=== PATIENT | male | born 1970 | race Caucasian/White ===

== ENCOUNTER → 2017-01-27 | Outpatient (CLI) | payer OTHER ==
[~2017-01-27] MED LIST: ACID REDUCER 1150 MG PO; ASPIRIN325 M2 PO; ATORVASTATIN CA80 M1 PO; BACTRIM DS 8001 TA1 PO; CLOPIDOGREL75 MG PO; HYDROCODONE BIT1 T11 PO; KEFLEX500 MG PO; LEVOTHYROXIN0.025 MG PO; LISINOPRIL10 M1 PO; LOPRESSOR25 MG PO; MOTRIN800 MG PO; NAPROSYN500 MG PO; NKHM PO; OMEPRAZOLE MAGN20 MG PO; PERCOCET 325 MG1 TA7 PO; ZOFRAN ODT4 MG SL; ZYLOPRIM100 MG PO; ZYRTEC10 MG PO
[2017-01-27 11:13] LABS: URIC ACID 3.3 mg/dL (3.5-7.2)
[2017-01-27 11:18] LABS: THYROID STIM HORMONE (HS) 3.17 uIU/ml (0.358-4.75)
== END | disposition home or self-care (01) ==
LOC: LAB 10:19
PROVIDERS: Nurse Practitioner Family
DX: I10 Essential (primary) hypertension (principal); E03.9 Hypothyroidism, unspecified; M10.9 Gout, unspecified

== ENCOUNTER 2017-05-30 21:48 | Emergency (ER) | payer OTHER ==
[~2017-05-30] VITALS: Ht 177.8 cm; Wt 104.3 kg
== END 2017-05-30 22:30 | disposition home or self-care (01) ==
LOC: ED 21:48
DX: S81.012A Laceration without foreign body, left knee, initial encounter (principal); F17.200 Nicotine dependence, unspecified, uncomplicated; Z91.030 Bee allergy status; W18.30XA Fall on same level, unspecified, initial encounter; Y93.89 Activity, other specified; Y92.9 Unspecified place or not applicable; Y99.9 Unspecified external cause status

== ENCOUNTER → 2017-07-16 | Outpatient (CLI) | payer OTHER | END | disposition home or self-care (01) | LOC: LAB 09:52 | DX: E03.9 Hypothyroidism, unspecified (principal) ==

== ENCOUNTER → 2017-08-18 | Outpatient (CLI) | payer OTHER ==
[~2017-08-18] MED LIST changes: +ANAPROX DS550 MG PO
[2017-08-18 10:59] LABS: BASO # 0.1 10*3/uL (0.0-0.1); BASO % 0.9 % (0.0-1.0); EOS # 0.3 10*3/uL (0.0-0.4); EOS % 2.8 % (1.0-4.0); HEMATOCRIT 45.9 % (42.0-52.0); HEMOGLOBIN 15.6 g/dl (14.0-18.0); LYMPH # 2.1 10*3/uL (1.3-4.4); LYMPH % 21.2 % (27.0-41.0); MEAN CELL VOLUME 92.5 fl (80.0-94.0); MEAN CORPUSCULAR HGB 31.5 pg (27.0-31.0); MEAN PLATELET VOLUME 8.8 fl (9.6-12.3); MONO # 0.9 10*3/uL (0.1-1.0); MONO % 8.7 % (3.0-9.0); NEUT # 6.4 10*3/uL (2.3-7.9); NEUT % 66.1 % (47.0-73.0); PLATELET COUNT AUTOMATED 323 10*3/uL (130-400); RED BLOOD COUNT 4.96 10*6/uL (4.50-5.90); RED CELL DISTRI WIDTH 12.4 % (0-14.5); WHITE BLOOD COUNT 9.7 10*3/uL (4.8-10.8)
[2017-08-18 11:35] LABS: ALBUMIN 3.4 gm/dl (3.1-4.5); ALKALINE PHOSPHATASE 96 U/L (45-117); BUN 8 mg/dl (7-24); CHLORIDE 105 mmol/L (98-107); CHOLESTEROL 156 mg/dL (<200); HDL CHOLESTEROL 62 mg/dl (40-60); LDL CHOLESTEROL 72 mg/dL (9-159); POTASSIUM 4.3 mmol/L (3.5-5.1); SGOT/AST 20 IU/L (3-35); SGPT/ALT 49 U/L (12-78); SODIUM 139 mmol/L (136-145); TOTAL PROTEIN 7.1 gm/dL (6.4-8.2); TRIGLYCERIDES 110 mg/dl (<150); VLDL CHOLESTEROL 22 mg/dL (6-40)
== END | disposition home or self-care (01) ==
LOC: LAB 10:09
PROVIDERS: Nurse Practitioner Family
DX: I10 Essential (primary) hypertension (principal); E03.9 Hypothyroidism, unspecified

== ENCOUNTER 2017-08-20 20:31 | Emergency (ER) | payer OTHER ==
[~2017-08-20] VITALS: Ht 175.2 cm; Wt 99.8 kg
[~2017-08-20 20:31] MED LIST changes: -ANAPROX DS550 MG PO
[2017-08-20 21:28] LABS: BASO # 0.1 10*3/uL (0.0-0.1); BASO % 0.9 % (0.0-1.0); EOS # 0.3 10*3/uL (0.0-0.4); EOS % 2.6 % (1.0-4.0); HEMATOCRIT 44.3 % (42.0-52.0); HEMOGLOBIN 15.2 g/dl (14.0-18.0); LYMPH # 2.4 10*3/uL (1.3-4.4); LYMPH % 23.1 % (27.0-41.0); MEAN CELL VOLUME 91.9 fl (80.0-94.0); MEAN CORPUSCULAR HGB 31.5 pg (27.0-31.0); MEAN CORPUSCULAR HGB CONC 34.3 g/dl (33.0-37.0); MEAN PLATELET VOLUME 8.6 fl (9.6-12.3); MONO # 0.8 10*3/uL (0.1-1.0); MONO % 7.7 % (3.0-9.0); NEUT # 6.8 10*3/uL (2.3-7.9); NEUT % 65.3 % (47.0-73.0); PLATELET COUNT AUTOMATED 305 10*3/uL (130-400); RED BLOOD COUNT 4.82 10*6/uL (4.50-5.90); RED CELL DISTRI WIDTH 12.3 % (0-14.5); WHITE BLOOD COUNT 10.4 10*3/uL (4.8-10.8)
[2017-08-20 21:43] LABS: ALBUMIN 3.8 gm/dl (3.1-4.5); ALKALINE PHOSPHATASE 89 U/L (45-117); BUN 10 mg/dl (7-24); CHLORIDE 102 mmol/L (98-107); CREATININE 1.08 mg/dL (0.70-1.30); LIPASE 193 U/L (73-393); POTASSIUM 3.5 mmol/L (3.5-5.1); SGOT/AST 24 IU/L (3-35); SGPT/ALT 45 U/L (12-78); SODIUM 135 mmol/L (136-145); TOTAL PROTEIN 7.4 gm/dL (6.4-8.2)
[2017-08-20 21:56] LABS: BILIRUBIN NEGATIVE (NEGATIVE); BLOOD NEGATIVE (NEGATIVE); CLARITY CLEAR (CLEAR); COLOR YELLOW (YELLOW); GLUCOSE NEGATIVE (NEGATIVE); KETONE NEGATIVE (NEGATIVE); LEUKO ESTERASE NEGATIVE (NEGATIVE); NITRITE NEGATIVE (NEGATIVE); SPECIFIC GRAVITY <= 1.005 (1.005-1.030); UROBILINOGEN 0.2 E.U./dl (0.2-1.0)
[2017-08-20 22:05] LABS: BACTERIA TRACE; EPITHELIAL CELLS 0-2; RBC 0-2 rbc/hpf (0-2); WBC 0-2 wbc/hpf (0-5)
[2017-08-20] MEDS ORDERED: ANAPROX DS550 MG PO (23:34)
== END 2017-08-20 23:36 | disposition home or self-care (01) ==
LOC: ED 20:31
PROVIDERS: Physician Assistant
DX: R10.30 Lower abdominal pain, unspecified (principal); F17.200 Nicotine dependence, unspecified, uncomplicated; Z91.030 Bee allergy status; Z79.899 Other long term (current) drug therapy

== ENCOUNTER 2017-09-23 18:19 | Emergency (ER) | payer OTHER ==
[~2017-09-23] VITALS: Ht 175.2 cm; Wt 103.9 kg
[~2017-09-23 18:19] MED LIST changes: +ANAPROX DS550 MG PO
[2017-09-23] MEDS ORDERED: MEDROL DOSEPAK4 MG PO (19:05)
[2017-09-23] MEDS ORDERED: CYCLOBENZAPRINE10 MG PO (19:05)
== END 2017-09-23 19:09 | disposition home or self-care (01) ==
LOC: ED 18:19
DX: S39.011A Strain of muscle, fascia and tendon of abdomen, initial encounter (principal); F17.200 Nicotine dependence, unspecified, uncomplicated; Z91.030 Bee allergy status; Z79.899 Other long term (current) drug therapy; X58.XXXA Exposure to other specified factors, initial encounter; Y99.8 Other external cause status; Y92.89 Other specified places as the place of occurrence of the external cause; Y93.89 Activity, other specified

== ENCOUNTER 2017-11-05 18:53 | Emergency (ER) | payer OTHER ==
[~2017-11-05] VITALS: Ht 175.2 cm; Wt 102.1 kg
[~2017-11-05 18:53] MED LIST changes: +CYCLOBENZAPRINE10 MG PO; +MEDROL DOSEPAK4 MG PO
[2017-11-05] MEDS ORDERED: ASPIRIN CHEWABL81 MG PO (19:13)
[2017-11-05] MEDS ORDERED: PROAIR HFA8.5 GM INH (20:16)
[2017-11-05] MEDS ORDERED: PREDNISONE20 M1 PO (20:16)
[2017-11-05] MEDS ORDERED: ZITHROMAX250 MG PO (20:16)
== END 2017-11-05 20:24 | disposition home or self-care (01) ==
LOC: ED 18:53
DX: J20.9 Acute bronchitis, unspecified (principal); K21.9 Gastro-esophageal reflux disease without esophagitis; M10.9 Gout, unspecified; E03.9 Hypothyroidism, unspecified; I10 Essential (primary) hypertension; F10.10 Alcohol abuse, uncomplicated; Z91.030 Bee allergy status; Z79.82 Long term (current) use of aspirin; Z79.899 Other long term (current) drug therapy

== ENCOUNTER → 2017-11-25 | Outpatient (CLI) | payer OTHER ==
[~2017-11-25] MED LIST changes: +ASPIRIN CHEWABL81 MG PO; +PREDNISONE20 M1 PO; +PROAIR HFA8.5 GM INH; +ZITHROMAX250 MG PO
[2017-11-25 09:59] LABS: BASO # 0.1 10*3/uL (0.0-0.1); BASO % 1.2 % (0.0-1.0); EOS # 0.2 10*3/uL (0.0-0.4); EOS % 2.6 % (1.0-4.0); HEMATOCRIT 46.2 % (42.0-52.0); HEMOGLOBIN 15.6 g/dl (14.0-18.0); LYMPH # 2.2 10*3/uL (1.3-4.4); LYMPH % 26.3 % (27.0-41.0); MEAN CELL VOLUME 92.6 fl (80.0-94.0); MEAN CORPUSCULAR HGB 31.3 pg (27.0-31.0); MEAN CORPUSCULAR HGB CONC 33.8 g/dl (33.0-37.0); MONO # 0.8 10*3/uL (0.1-1.0); MONO % 9.2 % (3.0-9.0); NEUT # 5.1 10*3/uL (2.3-7.9); NEUT % 60.3 % (47.0-73.0); PLATELET COUNT AUTOMATED 343 10*3/uL (130-400); RED BLOOD COUNT 4.99 10*6/uL (4.50-5.90); RED CELL DISTRI WIDTH 12.2 % (0-14.5); WHITE BLOOD COUNT 8.5 10*3/uL (4.8-10.8)
[2017-11-25 10:35] LABS: ALBUMIN 3.3 gm/dl (3.1-4.5); ALKALINE PHOSPHATASE 98 U/L (45-117); BUN 8 mg/dl (7-24); CHLORIDE 106 mmol/L (98-107); CHOLESTEROL 160 mg/dL (<200); CREATININE 1.04 mg/dL (0.70-1.30); HDL CHOLESTEROL 52 mg/dl (40-60); LDL CHOLESTEROL 73 mg/dL (9-159); POTASSIUM 4.1 mmol/L (3.5-5.1); SGOT/AST 19 IU/L (3-35); SGPT/ALT 38 U/L (12-78); SODIUM 141 mmol/L (136-145); TOTAL PROTEIN 6.9 gm/dL (6.4-8.2); TRIGLYCERIDES 175 mg/dl (<150); VLDL CHOLESTEROL 35 mg/dL (6-40)
== END ==
LOC: LAB 09:43
PROVIDERS: Nurse Practitioner Family
DX: I10 Essential (primary) hypertension (principal); E05.90 Thyrotoxicosis, unspecified without thyrotoxic crisis or storm; K76.9 Liver disease, unspecified

== ENCOUNTER → 2018-03-03 | Outpatient (CLI) | payer OTHER ==
[2018-03-03 10:36] LABS: BASO # 0.1 10*3/uL (0.0-0.1); BASO % 1.3 % (0.0-1.0); EOS # 0.2 10*3/uL (0.0-0.4); EOS % 2.1 % (1.0-4.0); HEMATOCRIT 49.1 % (42.0-52.0); HEMOGLOBIN 16.2 g/dl (14.0-18.0); LYMPH # 2.3 10*3/uL (1.3-4.4); LYMPH % 24.8 % (27.0-41.0); MEAN CELL VOLUME 92.8 fl (80.0-94.0); MEAN CORPUSCULAR HGB 30.6 pg (27.0-31.0); MEAN PLATELET VOLUME 9.5 fl (9.6-12.3); MONO % 10.1 % (3.0-9.0); NEUT # 5.8 10*3/uL (2.3-7.9); NEUT % 61.3 % (47.0-73.0); PLATELET COUNT AUTOMATED 342 10*3/uL (130-400); RED BLOOD COUNT 5.29 10*6/uL (4.50-5.90); RED CELL DISTRI WIDTH 12.5 % (0-14.5); WHITE BLOOD COUNT 9.4 10*3/uL (4.8-10.8)
[2018-03-03 11:09] LABS: ALBUMIN 3.6 gm/dl (3.1-4.5); BUN 11 mg/dl (7-24); CHLORIDE 103 mmol/L (98-107); CHOLESTEROL 163 mg/dL (<200); CREATININE 1.07 mg/dL (0.70-1.30); POTASSIUM 4.1 mmol/L (3.5-5.1); SGOT/AST 18 IU/L (3-35); SGPT/ALT 41 U/L (12-78); SODIUM 138 mmol/L (136-145)
[2018-03-03 11:11] LABS: ALKALINE PHOSPHATASE 108 U/L (45-117); HDL CHOLESTEROL 58 mg/dl (40-60); LDL CHOLESTEROL 80 mg/dL (9-159); TOTAL PROTEIN 7.2 gm/dL (6.4-8.2); TRIGLYCERIDES 125 mg/dl (<150); VLDL CHOLESTEROL 25 mg/dL (6-40)
== END | disposition home or self-care (01) ==
LOC: LAB 09:42
PROVIDERS: Nurse Practitioner Family
DX: I10 Essential (primary) hypertension (principal); K76.9 Liver disease, unspecified

== ENCOUNTER → 2018-09-08 | Outpatient (CLI) | payer OTHER ==
[2018-09-09 08:13] LABS: ALPHA-1-ANTITRYPSIN, SERUM 147 mg/dL (90-200)
== END | disposition home or self-care (01) ==
LOC: LAB 08:07
PROVIDERS: Internal Medicine Critical Care Medicine
DX: J44.9 Chronic obstructive pulmonary disease, unspecified (principal)

== ENCOUNTER 2018-11-11 17:06 | Emergency (ER) | payer OTHER ==
[~2018-11-11] VITALS: Ht 177.8 cm; Wt 99.8 kg
[2018-11-11] MEDS ORDERED: PREDNISONE50 MG PO (17:31)
[2018-11-11] MEDS ORDERED: ZITHROMAX250 MG PO (17:31)
== END 2018-11-11 17:45 | disposition home or self-care (01) ==
LOC: ED 17:06
DX: J20.9 Acute bronchitis, unspecified (principal); J44.9 Chronic obstructive pulmonary disease, unspecified; I10 Essential (primary) hypertension; K21.9 Gastro-esophageal reflux disease without esophagitis; E03.9 Hypothyroidism, unspecified; I25.2 Old myocardial infarction; F17.200 Nicotine dependence, unspecified, uncomplicated; Z91.030 Bee allergy status; Z79.899 Other long term (current) drug therapy; Z79.82 Long term (current) use of aspirin

== ENCOUNTER → 2019-01-24 | Outpatient (CLI) | payer OTHER ==
[~2019-01-24] MED LIST changes: +PREDNISONE50 MG PO
[2019-01-24 09:16] LABS: BASO # 0.1 10*3/uL (0.0-0.1); BASO % 1.1 % (0.0-1.0); EOS # 0.2 10*3/uL (0.0-0.4); EOS % 1.9 % (1.0-4.0); HEMATOCRIT 47.6 % (42.0-52.0); HEMOGLOBIN 15.7 g/dl (14.0-18.0); LYMPH % 18.7 % (27.0-41.0); MEAN CELL VOLUME 92.4 fl (80.0-94.0); MEAN CORPUSCULAR HGB 30.5 pg (27.0-31.0); MEAN PLATELET VOLUME 8.7 fl (9.6-12.3); MONO # 0.8 10*3/uL (0.1-1.0); MONO % 7.5 % (3.0-9.0); NEUT # 7.4 10*3/uL (2.3-7.9); NEUT % 70.5 % (47.0-73.0); PLATELET COUNT AUTOMATED 359 10*3/uL (130-400); RED BLOOD COUNT 5.15 10*6/uL (4.50-5.90); RED CELL DISTRI WIDTH 12.1 % (0-14.5); WHITE BLOOD COUNT 10.5 10*3/uL (4.8-10.8)
[2019-01-24 09:43] LABS: ALBUMIN 3.6 gm/dl (3.1-4.5); ALKALINE PHOSPHATASE 109 U/L (45-117); BUN 6 mg/dl (7-24); CHLORIDE 104 mmol/L (98-107); CHOLESTEROL 135 mg/dL (<200); HDL CHOLESTEROL 64 mg/dl (40-60); LDL CHOLESTEROL 61 mg/dL (9-159); POTASSIUM 4.4 mmol/L (3.5-5.1); SGOT/AST 18 IU/L (3-35); SODIUM 138 mmol/L (136-145); TOTAL PROTEIN 7.3 gm/dL (6.4-8.2); TRIGLYCERIDES 51 mg/dl (<150); URIC ACID 2.7 mg/dL (3.5-7.2); VLDL CHOLESTEROL 10 mg/dL (6-40)
[2019-01-24 09:45] LABS: SGPT/ALT 30 U/L (12-78)
== END | disposition home or self-care (01) ==
LOC: LAB 08:50
PROVIDERS: Nurse Practitioner Family
DX: E03.9 Hypothyroidism, unspecified (principal); I25.2 Old myocardial infarction; E78.2 Mixed hyperlipidemia; I10 Essential (primary) hypertension; M10.9 Gout, unspecified; J44.9 Chronic obstructive pulmonary disease, unspecified; R10.13 Epigastric pain; F17.210 Nicotine dependence, cigarettes, uncomplicated; E66.9 Obesity, unspecified

== ENCOUNTER 2019-06-23 19:21 | Emergency (ER) | payer SELFPAY ==
[~2019-06-23] VITALS: Ht 175.2 cm; Wt 89.8 kg
[2019-06-23 19:57] LABS: BASO # 0.1 10*3/uL (0.0-0.1); BASO % 1.1 % (0.0-1.0); EOS # 0.3 10*3/uL (0.0-0.4); EOS % 2.7 % (1.0-4.0); HEMOGLOBIN 16.1 g/dl (14.0-18.0); LYMPH % 29.8 % (27.0-41.0); MEAN CELL VOLUME 90.7 fl (80.0-94.0); MEAN CORPUSCULAR HGB 31.1 pg (27.0-31.0); MEAN CORPUSCULAR HGB CONC 34.3 g/dl (33.0-37.0); MEAN PLATELET VOLUME 8.4 fl (9.6-12.3); MONO # 0.8 10*3/uL (0.1-1.0); MONO % 8.2 % (3.0-9.0); NEUT # 5.9 10*3/uL (2.3-7.9); NEUT % 57.9 % (47.0-73.0); PLATELET COUNT AUTOMATED 345 10*3/uL (130-400); RED BLOOD COUNT 5.18 10*6/uL (4.50-5.90); RED CELL DISTRI WIDTH 12.2 % (0-14.5); WHITE BLOOD COUNT 10.1 10*3/uL (4.8-10.8)
[2019-06-23 20:12] LABS: ALBUMIN 3.5 gm/dl (3.1-4.5); ALKALINE PHOSPHATASE 118 U/L (45-117); BUN 8 mg/dl (7-24); CHLORIDE 101 mmol/L (98-107); CREATININE 0.86 mg/dL (0.70-1.30); LIPASE 97 U/L (73-393); POTASSIUM 2.9 mmol/L (3.5-5.1); SGOT/AST 15 IU/L (3-35); SGPT/ALT 24 U/L (12-78); SODIUM 136 mmol/L (136-145); TOTAL PROTEIN 7.2 gm/dL (6.4-8.2)
[2019-06-24] MEDS ORDERED: K-TAB20 MEQ PO (01:06)
== END 2019-06-24 01:22 | disposition home or self-care (01) ==
LOC: ED 19:21
PROVIDERS: Physician Assistant
DX: K42.9 Umbilical hernia without obstruction or gangrene (principal); E87.6 Hypokalemia; F17.200 Nicotine dependence, unspecified, uncomplicated; Z91.030 Bee allergy status; Z79.899 Other long term (current) drug therapy; Z79.82 Long term (current) use of aspirin

== ENCOUNTER 2019-11-24 11:01 | Emergency (ER) | payer SELFPAY ==
[~2019-11-24] VITALS: Ht 170.1 cm; Wt 95.3 kg
[~2019-11-24 11:01] MED LIST changes: +K-TAB20 MEQ PO
[2019-11-24 11:47] LABS: BASO # 0.1 10*3/uL (0.0-0.1); BASO % 1.4 % (0.0-1.0); EOS # 0.2 10*3/uL (0.0-0.4); EOS % 2.3 % (1.0-4.0); HEMATOCRIT 48.2 % (42.0-52.0); HEMOGLOBIN 16.1 g/dl (14.0-18.0); LYMPH % 24.6 % (27.0-41.0); MEAN CELL VOLUME 94.1 fl (80.0-94.0); MEAN CORPUSCULAR HGB 31.4 pg (27.0-31.0); MEAN CORPUSCULAR HGB CONC 33.4 g/dl (33.0-37.0); MEAN PLATELET VOLUME 8.9 fl (9.6-12.3); MONO # 0.6 10*3/uL (0.1-1.0); MONO % 7.2 % (3.0-9.0); NEUT # 5.1 10*3/uL (2.3-7.9); NEUT % 64.2 % (47.0-73.0); PLATELET COUNT AUTOMATED 355 10*3/uL (130-400); RED BLOOD COUNT 5.12 10*6/uL (4.50-5.90); RED CELL DISTRI WIDTH 11.9 % (0-14.5); WHITE BLOOD COUNT 7.9 10*3/uL (4.8-10.8)
[2019-11-24 11:58] LABS: ACT PARTIAL THROMBO TIME 26.8 SECONDS (20.0-32.1); INTERNATIONAL NORM RATIO 0.9 (2.0-3.5)
[2019-11-24 12:03] LABS: ALBUMIN 3.6 gm/dl (3.1-4.5); ALKALINE PHOSPHATASE 104 U/L (45-117); BUN 8 mg/dl (7-24); CHLORIDE 107 mmol/L (98-107); CREATININE 1.04 mg/dL (0.70-1.30); POTASSIUM 3.9 mmol/L (3.5-5.1); SGOT/AST 14 IU/L (3-35); SGPT/ALT 31 U/L (12-78); SODIUM 141 mmol/L (136-145)
[2019-11-24 12:05] LABS: TROPONIN I < 0.015 ng/ml (<0.045)
[2019-11-24] MEDS ORDERED: PROVENTIL HFA6.7 GM INH (12:51)
[2019-11-24] MEDS ORDERED: PREDNISONE20 M1 PO (12:51)
[2019-11-24] MEDS ORDERED: TESSALON PERLE100 M1 PO (12:51)
== END 2019-11-24 12:55 | disposition home or self-care (01) ==
LOC: ED 11:01
PROVIDERS: Emergency Medicine
DX: J40 Bronchitis, not specified as acute or chronic (principal); E03.9 Hypothyroidism, unspecified; M10.9 Gout, unspecified; I10 Essential (primary) hypertension; F17.200 Nicotine dependence, unspecified, uncomplicated; Z79.899 Other long term (current) drug therapy; Z91.038 Other insect allergy status; Z79.82 Long term (current) use of aspirin

== ENCOUNTER 2020-01-18 09:46 | Emergency (ER) | payer SELFPAY ==
[~2020-01-18] VITALS: Ht 175.2 cm; Wt 102.1 kg
[~2020-01-18 09:46] MED LIST changes: +PROVENTIL HFA6.7 GM INH; +TESSALON PERLE100 M1 PO
[2020-01-18 10:16] LABS: BASO # 0.1 10*3/uL (0.0-0.1); BASO % 1.3 % (0.0-1.0); EOS # 0.1 10*3/uL (0.0-0.4); EOS % 1.7 % (1.0-4.0); HEMATOCRIT 47.6 % (42.0-52.0); HEMOGLOBIN 15.9 g/dl (14.0-18.0); LYMPH # 1.8 10*3/uL (1.3-4.4); MEAN CELL VOLUME 93.9 fl (80.0-94.0); MEAN CORPUSCULAR HGB 31.4 pg (27.0-31.0); MEAN CORPUSCULAR HGB CONC 33.4 g/dl (33.0-37.0); MEAN PLATELET VOLUME 8.7 fl (9.6-12.3); MONO # 0.7 10*3/uL (0.1-1.0); MONO % 9.1 % (3.0-9.0); NEUT # 4.8 10*3/uL (2.3-7.9); NEUT % 63.6 % (47.0-73.0); PLATELET COUNT AUTOMATED 350 10*3/uL (130-400); RED BLOOD COUNT 5.07 10*6/uL (4.50-5.90); WHITE BLOOD COUNT 7.6 10*3/uL (4.8-10.8)
[2020-01-18 10:33] LABS: ALBUMIN 3.5 gm/dl (3.1-4.5); ALKALINE PHOSPHATASE 106 U/L (45-117); BUN 7 mg/dl (7-24); CHLORIDE 107 mmol/L (98-107); CREATININE 1.11 mg/dL (0.70-1.30); POTASSIUM 4.1 mmol/L (3.5-5.1); SGOT/AST 14 IU/L (3-35); SGPT/ALT 28 U/L (12-78); SODIUM 141 mmol/L (136-145); TOTAL PROTEIN 6.8 gm/dL (6.4-8.2)
[2020-01-18 10:39] LABS: TROPONIN I < 0.015 ng/ml (<0.045)
[2020-01-18] MEDS ORDERED: VIBRAMYCIN100 MG PO (13:54)
== END 2020-01-18 13:57 | disposition home or self-care (01) ==
LOC: ED 09:46
PROVIDERS: Internal Medicine
DX: J40 Bronchitis, not specified as acute or chronic (principal); R07.9 Chest pain, unspecified; E03.9 Hypothyroidism, unspecified; K21.9 Gastro-esophageal reflux disease without esophagitis; I25.2 Old myocardial infarction; I10 Essential (primary) hypertension; F17.200 Nicotine dependence, unspecified, uncomplicated; Z91.030 Bee allergy status; Z79.899 Other long term (current) drug therapy; Z79.82 Long term (current) use of aspirin

== ENCOUNTER 2020-03-22 23:13 | Emergency (ER) | payer MEDICAID ==
[~2020-03-22] VITALS: Ht 177.8 cm; Wt 99.8 kg
[~2020-03-22 23:13] MED LIST changes: +VIBRAMYCIN100 MG PO
[2020-03-23] MEDS ORDERED: PENICILLIN VK500 MG PO (00:24)
== END 2020-03-23 01:18 | disposition home or self-care (01) ==
LOC: ED 23:13
DX: K04.7 Periapical abscess without sinus (principal); K21.9 Gastro-esophageal reflux disease without esophagitis; M10.9 Gout, unspecified; I25.2 Old myocardial infarction; E03.9 Hypothyroidism, unspecified; I10 Essential (primary) hypertension; F17.200 Nicotine dependence, unspecified, uncomplicated; Z91.030 Bee allergy status; Z79.899 Other long term (current) drug therapy; Z79.82 Long term (current) use of aspirin

== ENCOUNTER 2020-12-04 23:37 | Emergency (ER) | payer OTHER ==
[~2020-12-04 23:37] MED LIST changes: +PENICILLIN VK500 MG PO
[2020-12-05] MEDS ORDERED: PROCTOSOL-HC28.35 GM T ×2 (00:25)
== END 2020-12-05 00:33 | disposition home or self-care (01) ==
LOC: ED 23:37
DX: K64.5 Perianal venous thrombosis (principal); I10 Essential (primary) hypertension; E03.9 Hypothyroidism, unspecified; Z98.890 Other specified postprocedural states; Z91.030 Bee allergy status; Z79.2 Long term (current) use of antibiotics; Z79.899 Other long term (current) drug therapy; Z79.82 Long term (current) use of aspirin

== ENCOUNTER 2020-12-22 00:09 | Inpatient (IN) | payer OTHER ==
[~2020-12-22] VITALS: Ht 165.1 cm; Wt 86.7 kg
[2020-12-22] VITALS (11 sets, daily range): BP systolic 84–153; BP diastolic 64–107
[~2020-12-22 00:09] MED LIST changes: +PROCTOSOL-HC28.35 GM T
[2020-12-22 00:47] LABS: HEMATOCRIT 45.8 % (42.0-52.0); MEAN CORPUSCULAR HGB 32.4 pg (27.0-31.0); MEAN CORPUSCULAR HGB CONC 34.1 g/dl (33.0-37.0); MEAN PLATELET VOLUME 8.8 fl (9.6-12.3); PLATELET COUNT AUTOMATED 343 10*3/uL (130-400); RED BLOOD COUNT 4.82 10*6/uL (4.50-5.90); RED CELL DISTRI WIDTH 11.9 % (0-14.5); WHITE BLOOD COUNT 12.7 10*3/uL (4.8-10.8)
[2020-12-22 01:01] LABS: BUN 8 mg/dl (7-24)
[2020-12-22 01:03] LABS: CHLORIDE 106 mmol/L (98-107); SODIUM 138 mmol/L (136-145)
[2020-12-22 01:05] LABS: BASOPHILS 1 % (0-1); PLATELET SUFFICIENCY NORMAL (NORMAL); TOTAL CELLS COUNTED 100 #CELLS
[2020-12-22] MEDS ORDERED: FAMOTIDINE20 M1 PO (02:36)
[2020-12-22] MEDS ORDERED: LEVOTHYROXINE200 MC2 PO (02:37)
[2020-12-22] MEDS ORDERED: CETIRIZINE HYDR10 MG PO (02:38)
[2020-12-22] MEDS ORDERED: ATORVASTATIN CA80 M1 PO (02:38)
[2020-12-22] MEDS ORDERED: DILTIAZEM HCL120 M2 PO (02:39)
[2020-12-22 05:14] LABS: ALBUMIN 2.7 gm/dl (3.1-4.5); BUN 8 mg/dl (7-24); CHLORIDE 110 mmol/L (98-107); CREATININE 0.78 mg/dL (0.70-1.30); POTASSIUM 4.3 mmol/L (3.5-5.1); SGOT/AST 10 IU/L (3-35); SGPT/ALT 21 U/L (12-78); SODIUM 140 mmol/L (136-145); TOTAL PROTEIN 6.3 gm/dL (6.4-8.2)
[2020-12-22 05:24] LABS: ALKALINE PHOSPHATASE 83 U/L (45-117)
[2020-12-22 06:22] LABS: BASO # 0.1 10*3/uL (0.0-0.1); BASO % 0.7 % (0.0-1.0); EOS # 0.3 10*3/uL (0.0-0.4); EOS % 2.2 % (1.0-4.0); HEMATOCRIT 43.9 % (42.0-52.0); LYMPH % 17.6 % (27.0-41.0); MEAN CELL VOLUME 96.1 fl (80.0-94.0); MEAN CORPUSCULAR HGB 32.2 pg (27.0-31.0); MEAN CORPUSCULAR HGB CONC 33.5 g/dl (33.0-37.0); MEAN PLATELET VOLUME 9.6 fl (9.6-12.3); MONO # 1.4 10*3/uL (0.1-1.0); MONO % 12.1 % (3.0-9.0); NEUT # 7.5 10*3/uL (2.3-7.9); PLATELET COUNT AUTOMATED 363 10*3/uL (130-400); RED BLOOD COUNT 4.57 10*6/uL (4.50-5.90); WHITE BLOOD COUNT 11.2 10*3/uL (4.8-10.8)
[2020-12-23] VITALS: BP 130/91
[2020-12-23 06:53] LABS: BASO # 0.1 10*3/uL (0.0-0.1); BASO % 0.9 % (0.0-1.0); EOS # 0.3 10*3/uL (0.0-0.4); EOS % 3.8 % (1.0-4.0); HEMATOCRIT 43.3 % (42.0-52.0); LYMPH # 1.3 10*3/uL (1.3-4.4); LYMPH % 15.7 % (27.0-41.0); MEAN CELL VOLUME 96.9 fl (80.0-94.0); MEAN CORPUSCULAR HGB 32.2 pg (27.0-31.0); MEAN CORPUSCULAR HGB CONC 33.3 g/dl (33.0-37.0); MONO % 11.6 % (3.0-9.0); NEUT # 5.8 10*3/uL (2.3-7.9); NEUT % 67.8 % (47.0-73.0); PLATELET COUNT AUTOMATED 331 10*3/uL (130-400); RED BLOOD COUNT 4.47 10*6/uL (4.50-5.90); RED CELL DISTRI WIDTH 11.9 % (0-14.5); WHITE BLOOD COUNT 8.5 10*3/uL (4.8-10.8)
[2020-12-23 07:02] LABS: BUN 6 mg/dl (7-24); CHLORIDE 106 mmol/L (98-107); CREATININE 0.85 mg/dL (0.70-1.30); SODIUM 138 mmol/L (136-145)
[2020-12-23 08:00] VITALS: BP 134/82
[2020-12-23] MEDS ORDERED: AUGMENTIN 875875 MG PO (11:39)
== END 2020-12-23 11:58 | disposition home or self-care (01) | DRG 853 ==
LOC: ED 00:09 → EDHOLD 02:08 → 5E 14:35
PROVIDERS: Family Medicine; Internal Medicine; Surgery; ADMIT Family Medicine; ATTEND Family Medicine
PROC: 0D9P0ZZ Drainage of Rectum, Open Approach (ICD-10-PCS; principal; 2020-12-22)
DX: A41.9 Sepsis, unspecified organism (principal); E43 Unspecified severe protein-calorie malnutrition; K61.1 Rectal abscess; D75.89 Other specified diseases of blood and blood-forming organs; I25.10 Atherosclerotic heart disease of native coronary artery without angina pectoris; J44.9 Chronic obstructive pulmonary disease, unspecified; M10.9 Gout, unspecified; I10 Essential (primary) hypertension; K21.9 Gastro-esophageal reflux disease without esophagitis; E03.9 Hypothyroidism, unspecified; K62.89 Other specified diseases of anus and rectum; E83.51 Hypocalcemia; F10.10 Alcohol abuse, uncomplicated; K57.90 Diverticulosis of intestine, part unspecified, without perforation or abscess without bleeding; E66.3 Overweight; F17.210 Nicotine dependence, cigarettes, uncomplicated; E83.41 Hypermagnesemia; Z91.09 Other allergy status, other than to drugs and biological substances; Z82.49 Family history of ischemic heart disease and other diseases of the circulatory system; I25.2 Old myocardial infarction; Z68.31 Body mass index [BMI] 31.0-31.9, adult

== ENCOUNTER 2021-07-08 22:15 | Emergency (ER) | payer OTHER ==
[~2021-07-08] VITALS: Ht 167.6 cm; Wt 97.1 kg
[~2021-07-08 22:15] MED LIST changes: +AUGMENTIN 875875 MG PO; +CETIRIZINE HYDR10 MG PO; +DILTIAZEM HCL120 M2 PO; +FAMOTIDINE20 M1 PO; +LEVOTHYROXINE200 MC2 PO
[2021-07-08 22:43] LABS: BASO # 0.1 10*3/uL (0.0-0.1); BASO % 1.3 % (0.0-1.0); EOS # 0.3 10*3/uL (0.0-0.4); EOS % 3.1 % (1.0-4.0); HEMATOCRIT 49.3 % (42.0-52.0); LYMPH # 3.8 10*3/uL (1.3-4.4); LYMPH % 36.1 % (27.0-41.0); MEAN CELL VOLUME 91.6 fl (80.0-94.0); MEAN CORPUSCULAR HGB 31.4 pg (27.0-31.0); MEAN CORPUSCULAR HGB CONC 34.3 g/dl (33.0-37.0); MEAN PLATELET VOLUME 8.4 fl (9.6-12.3); MONO % 9.2 % (3.0-9.0); NEUT # 5.2 10*3/uL (2.3-7.9); NEUT % 49.6 % (47.0-73.0); PLATELET COUNT AUTOMATED 358 10*3/uL (130-400); RED BLOOD COUNT 5.38 10*6/uL (4.50-5.90); RED CELL DISTRI WIDTH 12.2 % (0-14.5); WHITE BLOOD COUNT 10.5 10*3/uL (4.8-10.8)
[2021-07-08 23:07] LABS: ALBUMIN 3.3 gm/dl (3.1-4.5); ALKALINE PHOSPHATASE 109 U/L (45-117); BUN 4 mg/dl (7-24); CHLORIDE 102 mmol/L (98-107); CREATININE 0.61 mg/dL (0.70-1.30); POTASSIUM 3.3 mmol/L (3.5-5.1); SGOT/AST 13 IU/L (3-35); SGPT/ALT 37 U/L (12-78); SODIUM 133 mmol/L (136-145); TOTAL PROTEIN 7.3 gm/dL (6.4-8.2)
== END 2021-07-09 01:47 | disposition home or self-care (01) ==
LOC: ED 22:15
PROVIDERS: Internal Medicine
DX: F10.129 Alcohol abuse with intoxication, unspecified (principal); Z20.822 Contact with and (suspected) exposure to COVID-19; E87.6 Hypokalemia; F17.200 Nicotine dependence, unspecified, uncomplicated; Z90.89 Acquired absence of other organs; Z79.899 Other long term (current) drug therapy; Z79.82 Long term (current) use of aspirin; Z91.030 Bee allergy status; Y90.9 Presence of alcohol in blood, level not specified

== ENCOUNTER 2021-08-13 11:51 | Emergency (ER) | payer OTHER ==
[~2021-08-13] VITALS: Ht 175.2 cm; Wt 88.5 kg
[2021-08-13] MEDS ORDERED: AUGMENTIN 875875 MG PO (16:28)
[2021-08-13] MEDS ORDERED: IBUPROFEN600 MG PO (16:28)
== END 2021-08-13 15:45 | disposition home or self-care (01) ==
LOC: ED 11:51
DX: K08.89 Other specified disorders of teeth and supporting structures (principal); R22.0 Localized swelling, mass and lump, head; F17.200 Nicotine dependence, unspecified, uncomplicated; Z91.030 Bee allergy status; Z79.2 Long term (current) use of antibiotics; Z79.899 Other long term (current) drug therapy; Z79.82 Long term (current) use of aspirin; Z98.890 Other specified postprocedural states

== ENCOUNTER 2023-06-11 11:13 | Emergency (ER) | payer OTHER ==
[~2023-06-11] VITALS: Wt 81.6 kg
[~2023-06-11 11:13] MED LIST changes: +IBUPROFEN600 MG PO
[2023-06-11] MEDS ORDERED: IBUPROFEN600 MG PO (12:17)
[2023-06-11] MEDS ORDERED: TOBRAMYCIN5 ML OD (12:17)
== END 2023-06-11 12:41 | disposition home or self-care (01) ==
LOC: ED 11:13
DX: T15.91XA Foreign body on external eye, part unspecified, right eye, initial encounter (principal); I10 Essential (primary) hypertension; M10.9 Gout, unspecified; E03.9 Hypothyroidism, unspecified; Z91.030 Bee allergy status; Z98.890 Other specified postprocedural states; F17.200 Nicotine dependence, unspecified, uncomplicated; F10.10 Alcohol abuse, uncomplicated

== ENCOUNTER 2023-08-27 11:43 | Emergency (ER) | payer OTHER ==
[~2023-08-27] VITALS: Ht 172.7 cm; Wt 81.6 kg
[~2023-08-27 11:43] MED LIST changes: +TOBRAMYCIN5 ML OD
== END 2023-08-27 12:14 | disposition home or self-care (01) ==
LOC: ED 11:43
DX: T63.441A Toxic effect of venom of bees, accidental (unintentional), initial encounter (principal); I10 Essential (primary) hypertension; M10.9 Gout, unspecified; E03.9 Hypothyroidism, unspecified; Z98.890 Other specified postprocedural states; F10.10 Alcohol abuse, uncomplicated; F17.200 Nicotine dependence, unspecified, uncomplicated; Y92.89 Other specified places as the place of occurrence of the external cause

== ENCOUNTER 2023-10-09 13:29 | Emergency (ER) | payer OTHER ==
[~2023-10-09] VITALS: Ht 175.2 cm; Wt 81.2 kg
[2023-10-09 14:11] LABS: BASO # 0.1 10*3/uL (0.0-0.1); BASO % 1.2 % (0.0-1.0); EOS # 0.3 10*3/uL (0.0-0.4); HEMATOCRIT 49.8 % (42.0-52.0); LYMPH # 2.3 10*3/uL (1.3-4.4); LYMPH % 22.3 % (27.0-41.0); MEAN CELL VOLUME 93.3 fl (80.0-94.0); MEAN CORPUSCULAR HGB 31.8 pg (27.0-31.0); MEAN CORPUSCULAR HGB CONC 34.1 g/dl (33.0-37.0); MEAN PLATELET VOLUME 8.2 fl (9.6-12.3); MONO # 0.9 10*3/uL (0.1-1.0); MONO % 8.9 % (3.0-9.0); NEUT # 6.6 10*3/uL (2.3-7.9); NEUT % 64.2 % (47.0-73.0); PLATELET COUNT AUTOMATED 385 10*3/uL (130-400); RED BLOOD COUNT 5.34 10*6/uL (4.50-5.90); RED CELL DISTRI WIDTH 11.9 % (0-14.5); WHITE BLOOD COUNT 10.3 10*3/uL (4.8-10.8)
[2023-10-09 14:33] LABS: ALKALINE PHOSPHATASE 88 U/L (46-116); BUN 7 mg/dl (9-23); CHLORIDE 104 mmol/L (98-107); POTASSIUM 4.2 mmol/L (3.4-5.1); SGPT/ALT 22 U/L (5-49); TOTAL PROTEIN 7.5 gm/dL (6.0-8.0)
== END 2023-10-09 17:16 | disposition home or self-care (01) ==
LOC: ED 13:29
PROVIDERS: Nurse Practitioner
DX: B34.9 Viral infection, unspecified (principal); I10 Essential (primary) hypertension; M10.9 Gout, unspecified; E03.9 Hypothyroidism, unspecified; Z91.030 Bee allergy status; Z98.890 Other specified postprocedural states; F10.10 Alcohol abuse, uncomplicated; F17.290 Nicotine dependence, other tobacco product, uncomplicated; Z20.822 Contact with and (suspected) exposure to COVID-19

== ENCOUNTER 2023-10-23 08:44 | Emergency (ER) | payer OTHER ==
[~2023-10-23] VITALS: Ht 175.2 cm; Wt 81.2 kg
[2023-10-23] MEDS ORDERED: PROVENTIL HFA6.7 GM INH (11:10)
[2023-10-23] MEDS ORDERED: PREDNISONE50 MG PO (11:10)
[2023-10-23] MEDS ORDERED: VIBRAMYCIN100 MG PO (11:10)
== END 2023-10-23 11:18 | disposition home or self-care (01) ==
LOC: ED 08:44
DX: J44.1 Chronic obstructive pulmonary disease with (acute) exacerbation (principal); J06.9 Acute upper respiratory infection, unspecified; R51.9 Headache, unspecified; I10 Essential (primary) hypertension; M10.9 Gout, unspecified; E03.9 Hypothyroidism, unspecified; I25.2 Old myocardial infarction; Z91.030 Bee allergy status; Z98.890 Other specified postprocedural states; F17.210 Nicotine dependence, cigarettes, uncomplicated; F10.10 Alcohol abuse, uncomplicated; Z20.822 Contact with and (suspected) exposure to COVID-19

== ENCOUNTER 2024-03-26 11:28 | Emergency (ER) | payer MEDICAID ==
[~2024-03-26] VITALS: Ht 175.2 cm; Wt 83.5 kg
[2024-03-26] MEDS ORDERED: Lidocaine Hydrochloride 15 ML UDC PO STA (11:50)
[2024-03-26] MEDS ORDERED: BENZOCAINE 20% 11.9 GM GEL T STA (11:50)
[2024-03-26] MEDS ORDERED: PENICILLIN VK500 MG PO (11:51)
== END 2024-03-26 12:02 | disposition home or self-care (01) ==
LOC: ED 11:28
DX: K04.7 Periapical abscess without sinus (principal); F17.200 Nicotine dependence, unspecified, uncomplicated; Z91.030 Bee allergy status; Z79.899 Other long term (current) drug therapy; Z79.82 Long term (current) use of aspirin

== ENCOUNTER 2024-12-14 11:36 | Emergency (ER) | payer OTHER ==
[~2024-12-14] VITALS: Ht 175.2 cm; Wt 86.2 kg
[2024-12-14] MEDS ORDERED: PREDNISONE20 M1 PO (13:06)
[2024-12-14] MEDS ORDERED: AVPAK AZITHROM250 M1 PO (13:06)
[2024-12-14] MEDS ORDERED: AZITHROMYCIN 250 MG TAB PO ONE (13:10)
[2024-12-14] MEDS ORDERED: methylPREDNISolone sod succ 125 MG VIAL IM ONE (13:10)
== END 2024-12-14 13:08 | disposition home or self-care (01) ==
LOC: ED 11:36
DX: J44.0 Chronic obstructive pulmonary disease with (acute) lower respiratory infection (principal); Z20.822 Contact with and (suspected) exposure to COVID-19; J40 Bronchitis, not specified as acute or chronic; I10 Essential (primary) hypertension; I25.2 Old myocardial infarction; I25.10 Atherosclerotic heart disease of native coronary artery without angina pectoris; K21.9 Gastro-esophageal reflux disease without esophagitis; E03.9 Hypothyroidism, unspecified; F17.210 Nicotine dependence, cigarettes, uncomplicated; Z79.899 Other long term (current) drug therapy; Z79.82 Long term (current) use of aspirin

== ENCOUNTER 2025-09-21 15:32 | Emergency (ER) | payer OTHER ==
[~2025-09-21] VITALS: Ht 175.3 cm; Wt 79.4 kg
[~2025-09-21 15:32] MED LIST changes: +AVPAK AZITHROM250 M1 PO
[2025-09-21] MEDS ORDERED: METHOCARBAMOL500 M1 PO (16:13)
[2025-09-21] MEDS ORDERED: PREDNISONE20 M1 PO (16:13)
[2025-09-21] MEDS ORDERED: METHOCARBAMOL 500 MG TAB PO ONE (16:15)
[2025-09-21] MEDS ORDERED: Water, Sterile 10 ML VIAL ONE (16:48)
== END 2025-09-21 16:35 | disposition home or self-care (01) ==
LOC: ED 15:32
DX: M54.42 Lumbago with sciatica, left side (principal); F17.200 Nicotine dependence, unspecified, uncomplicated; Z91.030 Bee allergy status; Z79.899 Other long term (current) drug therapy; Z79.82 Long term (current) use of aspirin

== ENCOUNTER 2025-10-05 01:38 | Emergency (ER) | payer OTHER ==
[~2025-10-05] VITALS: Ht 175.2 cm; Wt 79.4 kg
[~2025-10-05 01:38] MED LIST changes: +METHOCARBAMOL500 M1 PO
[2025-10-05 02:20] LABS: BASO # 0.1 10*3/uL (0.0-0.1); BASO % 0.4 % (0.0-1.0); EOS # 0.3 10*3/uL (0.0-0.4); EOS % 1.7 % (1.0-4.0); MEAN CELL VOLUME 94.7 fl (80.0-94.0); MEAN CORPUSCULAR HGB 32.2 pg (27.0-31.0); MEAN PLATELET VOLUME 8.1 fl (9.6-12.3); MONO # 1.1 10*3/uL (0.1-1.0); MONO % 7.3 % (3.0-9.0); NEUT # 9.6 10*3/uL (2.3-7.9); NEUT % 63.7 % (47.0-73.0); NUCLEATED RED BLOOD CELL 0.0 % (0.0-0.0); NUCLEATED RED BLOOD CELL 0.0 10*3/uL (0.0-0.0); PLATELET COUNT AUTOMATED 310 10*3/uL (130-400); RED CELL DISTRI WIDTH 13.3 % (0-14.5)
[2025-10-05 02:52] LABS: BUN 5 mg/dl (9-23); SGPT/ALT 33 U/L (5-49)
[2025-10-05] MEDS ORDERED: VIBRAMYCIN100 MG PO (05:21)
[2025-10-05] MEDS ORDERED: BENZONATATE100 M1 PO (05:21)
== END 2025-10-05 05:49 | disposition home or self-care (01) ==
LOC: ED 01:38
PROVIDERS: Emergency Medicine
DX: R07.89 Other chest pain (principal); J40 Bronchitis, not specified as acute or chronic; I25.2 Old myocardial infarction; J44.9 Chronic obstructive pulmonary disease, unspecified; F17.200 Nicotine dependence, unspecified, uncomplicated; Z91.030 Bee allergy status; Z79.899 Other long term (current) drug therapy; Z79.82 Long term (current) use of aspirin; Z53.29 Procedure and treatment not carried out because of patient's decision for other reasons

== ENCOUNTER 2025-10-19 10:50 | Emergency (ER) | payer OTHER ==
[~2025-10-19] VITALS: Ht 175.2 cm; Wt 83.9 kg
[~2025-10-19 10:50] MED LIST changes: +BENZONATATE100 M1 PO
[2025-10-19] MEDS ORDERED: Acetaminophen/Oxycodone 5 MG/325 MG TABLET PO ONE (11:45)
== END 2025-10-19 11:47 | disposition home or self-care (01) ==
LOC: ED 10:50
DX: M54.32 Sciatica, left side (principal); J44.9 Chronic obstructive pulmonary disease, unspecified; I25.10 Atherosclerotic heart disease of native coronary artery without angina pectoris; I10 Essential (primary) hypertension; K21.9 Gastro-esophageal reflux disease without esophagitis; M10.9 Gout, unspecified; I25.2 Old myocardial infarction